=== PATIENT | male | born 1990 | race Caucasian/White ===

== ENCOUNTER 2018-07-29 22:24 | Emergency (ER) | payer BC ==
[2018-07-29] MEDS ORDERED: HYDROmorphone 0.5 MG/0.5 ML SYRINGE IVPUSH ONE (22:54)
--- NOTE | 2018-07-29 22:57 | EDM.PDOC ---
ED HPI GENERAL MEDICAL PROBLEM - General Chief Complaint: Abdominal Pain Stated Complaint: STOMACH PAINS Time Seen by Provider: 07/29/18 22:41 Source of Information: Reports: Patient, Family (Mother), RN Notes Reviewed History Limitations: Reports: No Limitations - History of Present Illness INITIAL COMMENTS - FREE TEXT/NARRATIVE: The patient states that he developed central abdominal pain yesterday. It is sharp in character, and has been getting progressively worse. He states that he feels better if he is in a crouched forward position. He states that he had nausea and emesis yesterday, but none today. No constipation or diarrhea. No recent urinary symptoms. No recent fever, and he is afebrile here in the ED. He states that his last bowel movement was about 2 hours ago, which was normal, but provided no relief of his symptoms. The patient has not tried any home remedies or treatments. No prior similar symptoms. The patient does not have a PCP. Middle Abdomen Pain Score (Numeric/FACES): 7 - Related Data Allergies Allergy/AdvReac Type Severity Reaction Status Date / Time No Known Allergies Allergy Verified 07/29/18 22:30 Home Meds: Home Meds Dicyclomine [Bentyl] 1 tab PO Q6H PRN #20 tablet 07/30/18 [Rx] Past Medical History Respiratory History: Reports: Asthma - Past Surgical History GI Surgical History: Reports: Appendectomy Social & Family History - Tobacco Use Smoking Status *Q: Former Smoker Years of Tobacco use: 3 Packs/Tins Daily: 0.5 - Caffeine Use Caffeine Use: Reports: Coffee, Energy Drinks - Alcohol Use Alcohol Use History: Yes Alcohol Use Frequency: Rarely - Recreational Drug Use Recreational Drug Use: No - Living Situation & Occupation Living situation: Reports: Single, with Family (Parents) 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 ED EXAM, GI/ABD - Physical Exam Exam: See Below Exam Limited By: No Limitations General Appearance: Alert, WD/WN, No Apparent Distress Eyes: Bilateral: Normal Appearance, EOMI Ears: Normal External Exam, Hearing Grossly Normal Nose: Normal Inspection, No Blood Throat/Mouth: Normal Inspection, Normal Lips, Normal Voice, No Airway Compromise Head: Atraumatic, Normocephalic Neck: Normal Inspection, Full Range of Motion Respiratory/Chest: No Respiratory Distress, Lungs Clear, Normal Breath Sounds, No Accessory Muscle Use Cardiovascular: Normal Peripheral Pulses, Regular Rate, Rhythm, No Edema, No Gallop, No JVD, No Murmur, No Rub GI/Abdominal Exam: Soft, No Organomegaly, No Distention, No Abnormal Bruit, No Mass, Tender (Generalized, non-focal), Abnormal Bowel Sounds (Severely diminished or absent) (Male) Exam: Deferred Rectal (Males) Exam: Deferred Back Exam: Normal Inspection, Full Range of Motion. No: CVA Tenderness (L), CVA Tenderness (R) Extremities: Normal Inspection, Normal Range of Motion, No Pedal Edema, Normal Capillary Refill Neurological: Alert, Oriented, Normal Cognition, No Motor/Sensory Deficits Psychiatric: Flat Affect Skin Exam: Warm, Dry, Intact, Normal Color, No Rash Course - Vital Signs Last Recorded V/S: Last Vital Signs Temp 36.5 C 07/29/18 22:30 Pulse 81 07/29/18 22:30 Resp 18 07/29/18 22:30 BP 124/81 07/29/18 22:30 Pulse Ox - Orders/Labs/Meds Orders: Active Orders 24 hr Category Date Time Status Abdomen Pelvis w Cont [CT] Stat Exams 07/29/18 22:53 Taken Dicyclomine [Bentyl] Med 07/30/18 01:07 Stat 20 mg PO ONETIME STA Sodium Chloride 0.9% [Normal Saline] 1,000 ml Med 07/29/18 23:00 Active IV ASDIRECTED Medication Orders Sodium Chloride (Normal Saline) 1,000 mls @ 150 mls/hr IV ASDIRECTED NGA Last Admin: 07/29/18 23:02 Dose: 150 mls/hr Labs: Laboratory Tests 07/29/18 07/29/18 07/30/18 Range/Units 23:00 23:00 00:49 WBC 6.58 (4.23-9.07) K/mm3 RBC 5.45 (4.63-6.08) M/mm3 Hgb 15.3 (13.7-17.5) gm/L Hct 44.7 (40.1-51.0) % MCV 82.0 (79.0-92.2) fl MCH 28.1 (25.7-32.2) pg MCHC 34.2 (32.2-35.5) g/dl RDW Std Deviation 36.9 (35.1-43.9) fL Plt Count 235 (163-337) K/mm3 MPV 10.5 (9.4-12.3) fl Neutrophils % (Manual) 62 H (40-60) % Band Neutrophils % 0 (0-10) % Lymphocytes % (Manual) 21 (20-40) % Atypical Lymphs % 5 % Monocytes % (Manual) 11 H (2-10) % Eosinophils % (Manual) 1 (0.8-7.0) % Basophils % (Manual) 0 L (0.2-1.2) Platelet Estimate Adequate Plt Morphology Comment Normal RBC Morph Comment Normal Sodium 139 (136-145) mEq/L Potassium 3.9 (3.5-5.1) mEq/L Chloride 106 (98-107) mEq/L Carbon Dioxide 28 (21-32) mEq/L Anion Gap 8.9 (5-15) BUN 11 (7-18) mg/dL Creatinine 0.9 (0.7-1.3) mg/dL Est Cr Clr Drug Dosing 108.19 mL/min Estimated GFR (MDRD) > 60 (>60) mL/min BUN/Creatinine Ratio 12.2 L (14-18) Glucose 100 (74-106) mg/dL Calcium 9.2 (8.5-10.1) mg/dL Total Bilirubin 0.5 (0.2-1.0) mg/dL AST 15 (15-37) U/L ALT 20 (16-63) U/L Alkaline Phosphatase 47 (46-116) U/L Total Protein 6.9 (6.4-8.2) g/dl Albumin 4.2 (3.4-5.0) g/dl Globulin 2.7 gm/dL Albumin/Globulin Ratio 1.6 (1-2) Lipase 200 (73-393) U/L Urine Color Yellow (Yellow) Urine Appearance Clear (Clear) Urine pH 6.0 (5.0-8.0) Ur Specific [place] 1.010 (1.005-1.030) Urine Protein Negative (Negative) Urine Glucose (UA) Negative (Negative) Urine Ketones Negative (Negative) Urine Occult Blood Negative (Negative) Urine Nitrite Negative (Negative) Urine Bilirubin Negative (Negative) Urine Urobilinogen 0.2 (0.2-1.0) Ur Leukocyte Esterase Negative (Negative) Urine RBC 0-5 (0-5) /hpf Urine WBC 0-5 (0-5) /hpf Urine WBC Clumps Rare (NOT SEEN) /hpf Ur Epithelial Cells Not seen (0-5) /hpf Urine Bacteria Not seen (FEW) /hpf Urine Mucus Not seen (FEW) /hpf Meds: Medications Generic Name Dose Route Start Last Admin Trade Name Freq PRN Reason Stop Dose Admin Sodium Chloride 1,000 mls @ 150 mls/hr 07/29/18 23:00 07/29/18 23:02 Normal Saline IV 150 mls/hr ASDIRECTED NGA Administration Discontinued Medications Generic Name Dose Route Start Last Admin Trade Name Freq PRN Reason Stop Dose Admin Diatrizoate Meglum/Diatrizoate Sod 90 ml 07/29/18 23:02 07/30/18 00:01 Gastrografin 37% PO 07/29/18 23:03 90 ml ONETIME ONE Administration Hydromorphone HCl 0.5 mg 07/29/18 22:54 07/29/18 23:02 Dilaudid IVPUSH 07/29/18 22:55 0.5 mg ONETIME ONE Administration Iopamidol 100 ml 07/29/18 23:02 07/30/18 00:01 Isovue-300 (61%) IVPUSH 07/29/18 23:03 100 ml ONETIME ONE Administration Sodium Chloride 10 ml 07/29/18 23:02 07/30/18 00:02 Saline Flush FLUSH 07/29/18 23:03 10 ml ONETIME ONE Administration - Re-Assessments/Exams Free Text/Narrative Re-Assessment/Exam: 07/29/18 22:55 On examination, the patient has severely diminished or even absent bowel sounds , and has generalized, non-focal tenderness. His findings are concerning for a small bowel obstruction, perhaps as a consequence of his prior appendectomy. I ordered blood work, a urinalysis, and a CT scan of the abdomen and pelvis with oral and IV contrast, along with IV fluid and some Dilaudid. He does not currently have any nausea, but if he develops nausea, I will order some Zofran. 07/30/18 00:45 CT of the abdomen and pelvis with oral and IV contrast is read by [facility] as: No acute intra-abdominal process identified The patient has only just now provided a urine sample. 07/30/18 01:08 Test results discussed with the patient and his mother. Wendy's workup is entirely negative, and does not explain the cause of the patient's pain. The patient will receive a dose of Bentyl here in the ED, and I will prescribe additional. I will refer the patient to Dr. Hayden, should his pain continue, for a possible EGD/colonoscopy. Departure - Departure Time of Disposition: 01:10 Disposition: Home, Self-Care 01 Condition: Fair Clinical Impression: Generalized abdominal pain of unknown etiology - Discharge Information *PRESCRIPTION DRUG MONITORING PROGRAM REVIEWED*: Not Applicable *COPY OF PRESCRIPTION DRUG MONITORING REPORT IN PATIENT ZENY: Not Applicable Referrals: PCP,None [Primary Care Provider] - Miguel Hayden MD [Physician] - Forms: ED Department Discharge Additional Instructions: You were seen in the emergency room for central abdominal pain, nausea, and vomiting. Workup in the ER included blood work, urinalysis, and a CT scan of your abdomen and pelvis with oral and IV contrast. Your entire workup was unremarkable, and did not explain the cause of your pain. You have been started on the anti-cramping medicine Bentyl. A prescription for Bentyl has been sent to the [facility], located in the [facility] grocery store. Take one tablet every 6 hours, as needed for abdominal pain. If your symptoms persist beyond a day or two, please follow-up with the surgeon Dr. Miguel Hayden for further evaluation that may include an EGD (scope of the stomach) or colonoscopy. If any other problems, please do not hesitate to return to the ER. - My Orders Last 24 Hours: My Active Orders 07/29/18 22:53 Abdomen Pelvis w Cont [CT] Stat 07/29/18 23:00 Sodium Chloride 0.9% [Normal Saline] 1,000 ml IV ASDIRECTED 07/30/18 01:07 Dicyclomine [Bentyl] 20 mg PO ONETIME STA - Assessment/Plan Last 24 Hours: My Active Orders 07/29/18 22:53 Abdomen Pelvis w Cont [CT] Stat 07/29/18 23:00 Sodium Chloride 0.9% [Normal Saline] 1,000 ml IV ASDIRECTED 07/30/18 01:07 Dicyclomine [Bentyl] 20 mg PO ONETIME STA
[2018-07-29] MEDS ORDERED: Sodium Chloride 0.9% 1,000 ML IV SCH (23:00)
[2018-07-29] MEDS ORDERED: Diatrizoate Meglumine/Diatrizoate Sodium 37% 120 ML Bottle PO ONE (23:02)
[2018-07-29] MEDS ORDERED: Sodium Chloride 0.9% 10 ML Syringe FLUSH ONE (23:02)
[2018-07-29] MEDS ORDERED: Iopamidol 612 MG/ML 100 ML Bottle IVPUSH ONE (23:02)
[2018-07-30] MEDS ORDERED: Dicyclomine 10 MG Cap PO STA (01:07)
--- NOTE | 2018-07-30 07:39 | CT ---
CT abdomen and pelvis Technique: Multiple axial sections were obtained from above the dome of the diaphragm inferiorly through the pubic symphysis. Intravenous and oral contrast was utilized. Delayed images were obtained through the bladder. Comparison: No prior abdominal imaging. Findings: Appendix not visualized presumably from previous appendectomy. Visualized lung bases show nothing acute. Liver shows no focal parenchymal abnormality. Spleen appears within normal limits. Adrenal glands show no nodule. Pancreas is normal. Kidneys show symmetric contrast enhancement without hydronephrosis or mass. Gallbladder contains no calcified gallstones. Aorta shows no aneurysm. No retroperitoneal adenopathy or mesenteric abnormalities are seen. No pelvic mass or adenopathy is noted. Delayed images show contrast within the distal ureters and within the bladder. Bone window settings were reviewed which appear within normal limits for the patient's age. Impression: 1. Nothing acute is seen on CT study of the abdomen and pelvis. Diagnostic code #1 Agree with preliminary report issued by [facility] ([facility] preliminary report dictated on 07/30/18, 1:40 AM Central Time)
== END 2018-07-30 01:27 | disposition home or self-care (01) ==
LOC: JD.ED 22:24
DX: R10.84 Generalized abdominal pain (principal); Z90.49 Acquired absence of other specified parts of digestive tract; Z87.891 Personal history of nicotine dependence
CPT/HCPCS: 36415; 74177; 80053; 81001; 83690; 85007; 85027; 96361; 96374; 99284; A9270; J1170; J7040; J7050; Q9963; Q9967